=== PATIENT | female | born 1965 | race Caucasian/White ===

== ENCOUNTER → 2019-06-23 | Outpatient (CLI) | payer OTHER | LOC: M.RAD 15:13 | DX: J02.9 Acute pharyngitis, unspecified (principal); R52 Pain, unspecified; J84.10 Pulmonary fibrosis, unspecified ==

== ENCOUNTER → 2019-07-28 | Outpatient (CLI) | payer OTHER | LOC: M.RAD 13:57 | DX: J18.1 Lobar pneumonia, unspecified organism (principal) ==

== ENCOUNTER → 2021-01-18 | Outpatient (CLI) | payer OTHER | LOC: M.RAD 13:10 | PROVIDERS: ATTEND Obstetrics & Gynecology | DX: Z12.31 Encounter for screening mammogram for malignant neoplasm of breast (principal) ==